=== PATIENT | female | born 1995 | race Caucasian/White ===

== ENCOUNTER 2016-09-18 22:05 | Emergency (ER) | payer SELFPAY ==
[2016-09-18 22:16] VITALS: BP 170/100
--- NOTE | 2016-09-18 22:26 | EDM.PDOC ---
ED HPI GENERAL MEDICAL PROBLEM - General Chief Complaint: Skin Complaint Stated Complaint: PT HAS LUMP ON TAILBONE Time Seen by Provider: 09/18/16 22:17 - History of Present Illness INITIAL COMMENTS - FREE TEXT/NARRATIVE: HISTORY AND PHYSICAL: History of present illness: The patient is a 21-year-old female who presents with a five-day history of swelling and pain at the top of her tailbone and she has a history of having a cyst there which required drainage in the past. The patient states she never followed up with a surgeon to have definitive removal and she was never told that this was a possibility. She's had no systemic complaints of fever chills nausea vomiting or diarrhea and has been urinating and passing her stools without difficulties. She has no pain at the perianal area. Patient is doing sitz baths and came in for evaluation today due to the pain. Patient also has a history of PCO S. Review of systems: As per history of present illness and below otherwise all systems reviewed and negative. Past medical history: As per history of present illness and as reviewed below otherwise noncontributory. Surgical history: As per history of present illness and as reviewed below otherwise noncontributory. Social history: No reported history of drug or alcohol abuse. Family history: As per history of present illness and as reviewed below otherwise noncontributory. Physical exam: General: Well-developed overweight female who is nontoxic and moves easily in the ED. She sits without any difficulty in the bed. HEENT: Atraumatic, normocephalic, negative for conjunctival pallor or scleral icterus, mucous membranes moist, throat clear, neck supple, nontender, trachea midline. Lungs: Clear to auscultation, breath sounds equal bilaterally, chest nontender. Heart: S1S2, regular, negative for clicks, rubs, or JVD. Abdomen: Soft, nondistended, nontender. NABS Pelvis: Stable nontender. Genitourinary: Deferred. Rectal: Deferred. Extremities: Atraumatic, negative for cords or calf pain. Neurovascular unremarkable. Neuro: Awake, alert, oriented. Cranial nerves II through XII unremarkable. Cerebellum unremarkable. Motor and sensory unremarkable throughout. Exam nonfocal. Skin: At the coccyx area at the top of the gluteal fold there is a 3 x 2 cm area of pinkish erythema without fluctuance but there is induration and tenderness. There is no perianal lesions or pain in the area at the top of the gluteal fold does not extend laterally to either side. The area of greatest tenderness is not fluctuant and it sits to the left of the midline slightly. Diagnostics: [] Therapeutics: [] I discussed with the patient that at this time the cyst is not drainable and that we will place her on antibiotics and pain meds and I will refer her to general surgery for definitive excision of the cyst. She is happy with the care plan Impression: Early pilonidal cyst, pilonidal cellulitis Definitive disposition and diagnosis as appropriate pending reevaluation and review of above. TAILBONE AREA Pain Score (Numeric/FACES): 6 - Related Data Allergies Allergy/AdvReac Type Severity Reaction Status Date / Time aloe vera Allergy Rash Verified 09/18/16 22:12 MAYONAISE Allergy Vomiting Uncoded 09/18/16 22:12 Home Meds: Home Meds . [No Known Home Meds] 09/18/16 [History] ED ROS GENERAL - Review of Systems Review Of Systems: ROS reveals no pertinent complaints other than HPI. ED EXAM, SKIN/RASH Exam: See Below (See dictation) Course - Vital Signs Last Recorded V/S: Last Vital Signs Temp 36.7 C 09/18/16 22:13 Pulse 110 H 09/18/16 22:13 Resp 16 09/18/16 22:13 BP 170/100 H 09/18/16 22:13 Pulse Ox 99 09/18/16 22:13 Departure - Departure Time of Disposition: 22:30 Disposition: Home, Self-Care 01 Condition: good Clinical Impression: Pilonidal cyst Cellulitis Qualifiers: Site of cellulitis: buttock Qualified Code(s): L03.317 - Cellulitis of buttock - Discharge Information Forms: ED Department Discharge Additional Instructions: The following information is given to patients seen in the emergency department who are being discharged to home. This information is to outline your options for follow-up care. We provide all patients seen in our emergency department with a follow-up referral. The need for follow-up, as well as the timing and circumstances, are variable depending upon the specifics of your emergency department visit. If you don't have a primary care physician on staff, we will provide you with a referral. We always advise you to contact your personal physician following an emergency department visit to inform them of the circumstance of the visit and for follow-up with them and/or the need for any referrals to a consulting specialist. The emergency department will also refer you to a specialist when appropriate. This referral assures that you have the opportunity for followup care with a specialist. All of these measure are taken in an effort to provide you with optimal care, which includes your followup. Under all circumstances we always encourage you to contact your private physician who remains a resource for coordinating your care. When calling for followup care, please make the office aware that this follow-up is from your recent emergency room visit. If for any reason you are refused follow-up, please contact the [facility] emergency department at and ask to speak to the emergency department charge nurse. [facility] Primary care- Internal Medicine and Family [facility] [address] [place] [id number] [facility] Specialty Care-General Surgery Professional Building [address] [place] [id number] Please call our surgery clinic tomorrow for an appointment next week for reevaluation and definitive care of this cyst. Take antibiotics until they are finished and use pain medications as needed described as well as over-the- counter medications during the day. Please do not take the stronger medications when you're at work or at of your house. You have been prescribed Augmentin and [place] from [facility]
== END 2016-09-18 22:45 | disposition home or self-care (01) ==
LOC: EDSEX 22:05 → MW.ED 22:05
DX: L05.91 Pilonidal cyst without abscess (principal); L03.317 Cellulitis of buttock; Z91.09 Other allergy status, other than to drugs and biological substances
CPT/HCPCS: 99283

== ENCOUNTER 2016-10-12 16:59 | Emergency (ER) | payer SELFPAY ==
[2016-10-12] MEDS ORDERED: Proparacaine 0.5% Ophth Soln 15 ML Bottle EYERT STA (17:17)
--- NOTE | 2016-10-12 17:33 | EDM.PDOC ---
ED HPI GENERAL MEDICAL PROBLEM - General Chief Complaint: Eye Problems Stated Complaint: CASTRO FROM CIGARETTE IN RIGHT EYE Time Seen by Provider: 10/12/16 17:08 Source of Information: Reports: Patient History Limitations: Reports: No Limitations - History of Present Illness INITIAL COMMENTS - FREE TEXT/NARRATIVE: Presents at reporting that one hour prior to arrival she was outside smoking when a little bit of cigarette castro flew into her right eye. She flushed her eye with water for 15 minutes and then instilled saline drops but still complains of burning and photophobia. She usually wears contact lenses but she did not have them in at the time of the incident and she does not have them and now. right eye Pain Score (Numeric/FACES): 7 - Related Data Allergies Allergy/AdvReac Type Severity Reaction Status Date / Time aloe vera Allergy Rash Verified 10/12/16 17:04 MAYONAISE Allergy Vomiting Uncoded 10/12/16 17:04 Home Meds: Home Meds . [No Known Home Meds] 09/18/16 [History] Past Medical History HEENT History: Reports: Impaired Vision Other HEENT History: wears eye contact lens Cardiovascular History: Reports: High Cholesterol Genitourinary History: Reports: Hydronephrosis, Renal Disease, Other (See Below) Other Genitourinary History: kidney reconstruction [employer] History: Reports: Other (See Below) Other OB/BYN History: Polycystic ovarian syndrome Psychiatric History: Reports: None, Anxiety, Bipolar, PTSD Endocrine/Metabolic History: Reports: Obesity/BMI 30+ Dermatologic History: Reports: None - Infectious Disease History Infectious Disease History: Reports: Influenza - Past Surgical History HEENT Surgical History: Reports: Tonsillectomy Cardiovascular Surgical History: Reports: Other (See Below) Other Cardiovascular Surgeries/Procedures: angioplasty Social & Family History - Family History Family Medical History: Noncontributory Cardiac: Reports: CAD - Tobacco Use Smoking Status *Q: Current Every Day Smoker Years of Tobacco use: 7 Packs/Tins Daily: 1 - Caffeine Use Caffeine Use: Reports: Coffee Caffeine Use Comment: 2 cups daily - Recreational Drug Use Recreational Drug Use: No ED ROS GENERAL - Review of Systems Review Of Systems: ROS reveals no pertinent complaints other than HPI. ED EXAM GENERAL W FULL EYE - Physical Exam Exam: See Below General Appearance: Alert, Mild Distress (due to eye pain) Eye Exam: Bilateral Eye: EOMI, PERRL Visual Acuity (R) 20/: 60 Visual Acuity (L) 20/: 40 With Correction: No Eyelids: Bilateral: Normal Appearance Conjunctiva & Sclera: Right: Foreign Body, Bilateral: Normal Appearance Cornea Exam: Bilateral: Normal Appearance Extraocular Movements: Bilateral: Intact Pupillary Size: Bilateral: 3 mm Pupillary Reaction: Bilateral: Brisk Anterior Chamber: Bilateral: Normal Appearance Ears: Normal External Exam Nose: Normal Inspection Throat/Mouth: Normal Inspection Head: Atraumatic, Normocephalic Neck: Normal Inspection Respiratory/Chest: No Respiratory Distress, Lungs Clear, Normal Breath Sounds Cardiovascular: Normal Peripheral Pulses, Regular Rate, Rhythm GI/Abdominal: Soft Back Exam: Normal Inspection Extremities: Normal Inspection Neurological: Alert, Oriented Psychiatric: Normal Affect, Normal Mood Skin Exam: Warm, Dry Course - Vital Signs Last Recorded V/S: Last Vital Signs Temp 37.2 C 10/12/16 17:09 Pulse 106 H 10/12/16 17:09 Resp 18 10/12/16 17:09 BP 163/100 H 10/12/16 17:09 Pulse Ox 97 10/12/16 17:09 - Orders/Labs/Meds Meds: Medications Discontinued Medications Generic Name Dose Route Start Last Admin Trade Name Freq PRN Reason Stop Dose Admin Proparacaine HCl 1 ml 10/12/16 17:17 Proparacaine 0.5% Ophth Soln EYERT 10/12/16 17:18 NOW STA - Re-Assessments/Exams Free Text/Narrative Re-Assessment/Exam: 10/12/16 17:40 After anesthesia with proparacaine 0.5% 2 drops and fluorescein stain, the eye was inspected with a small foreign body/pit centered over the pupil noted. A small foreign body was removed with a needle, the eye flushed and the remaining pit visualized. No abrasion. Departure - Departure Time of Disposition: 17:43 Disposition: Home, Self-Care 01 Condition: good Clinical Impression: Foreign body, eye - Discharge Information Referrals: PCP,None [Primary Care Provider] - [facility] [Outside] Forms: ED Department Discharge Additional Instructions: 1. make an appointment tomorrow at either [facility] ophthalmology or at the [address] [place] [phone] for a reexamination. 2. Gentamicin drop 2 now and every four hours
[2016-10-12 18:13] VITALS: BP 160/90
== END 2016-10-12 18:09 | disposition home or self-care (01) ==
LOC: MW.ED 16:59
DX: T15.01XA Foreign body in cornea, right eye, initial encounter (principal); F17.210 Nicotine dependence, cigarettes, uncomplicated; E66.9 Obesity, unspecified; Z68.41 Body mass index [BMI] 40.0-44.9, adult; Z91.018 Allergy to other foods; Z95.5 Presence of coronary angioplasty implant and graft; Z98.890 Other specified postprocedural states; X58.XXXA Exposure to other specified factors, initial encounter
CPT/HCPCS: 65220; 99283